=== PATIENT | male | born 1970 | race Hispanic/Latino ===

== ENCOUNTER 2019-05-15 04:07 | Observation (INO) | payer OTHER ==
[2019-05-15] MEDS ORDERED: Nitroglycerin 2% Ointment 1 INCH/1 GM Packet ONE (04:29)
[2019-05-15] MEDS ORDERED: Aspirin Chewable 81 MG TAB ONE (04:29)
[2019-05-15] MEDS ORDERED: Nitroglycerin 0.4 MG TAB 1 EACH ONE (04:29)
[2019-05-15 04:33] LABS: #Basophils 0.1 thou/uL (0.0-0.2); #Eosinphils 0.3 thou/uL (0.0-0.7); #Lymphocytes 2.5 thou/uL (1.20-3.40); #Monocytes 0.9 thou/uL (0.11-0.59); #Neutrophils 3.8 thou/uL (1.40-6.50); %Basophils 0.7 % (0.0-1.0); %Eosinophils 3.9 % (0.0-10.0); %Lymphocytes 33.1 % (21.0-51.0); %Monocytes 11.3 % (0.0-10.0); Hemoglobin 17.8 g/dL (14.0-18.0); Mean Corpuscular HGB CONC 32.1 g/dL (32.0-36.0); Mean Corpuscular Hemoglobin 28.4 pg (27.0-31.0); Mean Corpuscular Volume 88.5 fL (78.0-98.0); Mean Platelet Volume 8.5 fL (7.4-10.4); Platelet Count 170 thou/uL (130-400); RBC Distribution Width 13.6 % (11.5-14.5); Red Blood Cell (RBC) Count 6.26 mill/uL (4.70-6.10); White Blood Cell (WBC) Count 7.5 thou/uL (4.8-10.8)
[2019-05-15 05:00] LABS: ALT (SGPT) 36 U/L (8-55); AST (SGOT) 25 U/L (5-34); Albumin 4.4 g/dL (3.5-5.0); Alkaline Phosphatase 94 U/L (40-150); Anion Gap 12 mmol/L (10-20); BUN (Urea Nitrogen) 14 mg/dL (8.9-20.6); Bilirubin, Total 0.6 mg/dL (0.2-1.2); Calc. Creatinine Clearance 0 mL/min (70-130); Carbon Dioxide 23 mmol/L (22-29); Chloride 105 mmol/L (98-107); Estimated GFR-MDRD 79; Globulin 2.9 g/dL (2.4-3.5); Glucose 89 mg/dL (70-105); Protein, Total 7.3 g/dL (6.0-8.3); Sodium 136 mmol/L (136-145)
[2019-05-15 05:45] LABS: Bilirubin Negative (Negative); Blood, Urine Negative (Negative); Clarity Clear (Clear); Glucose, Urine (Dipstick) Normal (Negative); Leukocyte Negative Leu/uL (Negative); Nitrite Negative (Negative); Protein, Urine (Dipstick) Negative (Neg-Trace); Urobilinogen Normal mg/dL (Less than 2)
[2019-05-15] MEDS ORDERED: Ondansetron PF 4 MG/2 ML Vial IVP PRN ×2 (06:43→07:44)
[2019-05-15] MEDS ORDERED: Ondansetron ODT 4 MG TAB PO PRN ×2 (06:44→07:44)
[2019-05-15] MEDS ORDERED: Acetaminophen 325 MG TAB PO PRN ×2 (06:44→07:44)
[2019-05-15 06:45] VITALS: BMI 27.9
[2019-05-15] MEDS ORDERED: Sodium Chloride 0.9% 1,000 ML IV SCH (06:45)
--- NOTE | 2019-05-15 07:37 | RAD ---
Portable frontal chest radiograph: 05/15/2019 COMPARISON: None HISTORY: Chest pain, hypertension FINDINGS: No pneumothorax or focal consolidation. No alveolar edema. Blunting of the costophrenic ang le noted on the right, which may signify pleural thickening and/or small volume right pleural effusion. Heart and mediastinal contours are grossly unremarkable. IMPRESSION: Blunting of the right costophrenic angle suggests right pleural fluid. This could be bett er assessed with PA and lateral imaging of the chest.
[2019-05-15] MEDS ORDERED: Zolpidem Tartrate 5 MG TAB PO PRN (07:44)
[2019-05-15] MEDS ORDERED: Loratadine 10 MG TAB PO PRN (07:44)
[2019-05-15] MEDS ORDERED: Sodium Chloride 0.65% Nasal 44 ML BOT EA NARE PRN (07:44)
[2019-05-15] MEDS ORDERED: Artificial Tears 18 DROP/0.9 ML EA EYE PRN (07:44)
[2019-05-15] MEDS ORDERED: Loperamide HCl 2 MG CAP PO PRN (07:44)
[2019-05-15] MEDS ORDERED: Cepastat Lozenges 1 LOZ PO PRN (07:44)
[2019-05-15] MEDS ORDERED: Senokot S 8.6-50 MG TAB PO PRN (07:44)
[2019-05-15] MEDS ORDERED: Diabetic Tussin 200 MG/10 ML UDCUP PO PRN (07:44)
[2019-05-15] MEDS ORDERED: hydrALAZINE 20 MG/ML VIAL SLOW IVP PRN (07:44)
[2019-05-15] MEDS ORDERED: Bisacodyl 5 MG TAB PO PRN (07:44)
[2019-05-15] MEDS ORDERED: Calcium Carbonate 500 MG ChewTAB PO PRN (07:44)
[2019-05-15] MEDS ORDERED: Nitroglycerin 0.4 MG TAB (25 Tab Bottle) SL PRN (07:44)
[2019-05-15 07:56] LABS: Troponin I Less than 0.010 ng/mL (< 0.028)
[2019-05-15 08:30] LABS: Cardiac Risk 4.3 (Less than 4.5)
[2019-05-15] MEDS ORDERED: Famotidine 20 MG TAB PO SCH (09:00)
[2019-05-15 10:50] LABS: Troponin I Less than 0.010 ng/mL (< 0.028)
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
[2019-05-15] MEDS ORDERED: SUMAtriptan Succinate 50 MG TAB PO SCH (13:30)
[2019-05-15] MEDS ORDERED: cloNIDine 0.1 MG TAB PO PRN (14:58)
[2019-05-15] MEDS ORDERED: Famotidine/PF 20 mg/2ml Vial SLOW IVP SCH (15:00)
[2019-05-15] MEDS ORDERED: Enoxaparin Sodium 80 MG/0.8 ML SYRINGE SC SCH (15:00)
--- NOTE | 2019-05-15 16:43 | CON ---
DATE OF CONSULTATION: 05/15/2019 REASON FOR CONSULTATION: Chest pain and pressure at rest. HISTORY OF PRESENT ILLNESS: Mr. Edwards is a 49-year-old gentleman. The patient recently has undergone evaluation including stress testing, found to have abnormalities on stress test and was scheduled for cardiac catheterization. He has been visiting this area and had recurrent chest pain. The patient states that his pain has been going on about a year, almost exclusively at night, severe pain. He said the pain he had last night was one of the worst he has had and is very intense and woke him up from sleep. He had resolution of pain here. The patient's pain is described as a severe intense pressure in middle of his chest, going across his chest. The patient recently underwent stress testing, it was thought to have a fixed inferior defect with joe-infarction ischemia. Ejection fraction 45% to 50%. Also, recent testing indicated severely increased LDL cholesterol at 151 and from reading the notes that was on atorvastatin. HOME MEDICATIONS: Included, 1. Aspirin. He is taking on occasion, but not consistently. 2. Atorvastatin 40 mg a day. 3. Lisinopril 10 mg a day. 4. Metoprolol 75 mg a day succinate. 5. Naproxen. He has migraine headaches. He was taking rizatriptan benzoate as well as Imitrex if needed. Stress test was done. The patient was an actually able to exercise for 15 minutes on the René protocol, did not have chest pain. Heart rate has reached 150. There is no significant ST or T-wave changes. However, the nuclear medicine imaging revealed a fixed inferior defect with possible joe-infarction ischemia. The ejection fraction however on echocardiogram was 60% to 64%. Of note, the patient did apparently have some evaluation with upper endoscopy. He thinks about 3 years ago from his description, it sounds like they found reflux. He has not been having any burning in his chest or reflux like symptoms recently. Stress test was done on 04/16/2019. ALLERGIES: NONE KNOWN. SOCIAL HISTORY: No alcohol or tobacco. FAMILY HISTORY: Negative for heart disease at a young age. REVIEW OF SYSTEMS: CONSTITUTIONAL: No significant weight gain or loss. VISION: No changes. HEARING: No changes. PULMONARY: No cough or wheezing. GASTROINTESTINAL: No nausea, vomiting, or diarrhea. SKIN: No rashes. NEUROLOGIC: No unilateral weakness or numbness. PSYCHIATRIC: No unusual depression or anxiety. PHYSICAL EXAMINATION: GENERAL: This is a pleasant 49-year-old gentleman. He is 5 feet and 6 inches tall and 173 pounds. HEENT: Eyes, sclerae are nonicteric. Mouth, mucous membranes are moist. NECK: Supple. No lymphadenopathy. LUNGS: Clear. No wheezing, rales, or rhonchi. CARDIAC: Normal S1 and normal S2. There is no murmur, rub, or gallop. ABDOMEN: Soft and nontender. EXTREMITIES: Warm and dry. No clubbing, cyanosis, or edema. PERIPHERAL PULSES: Strong posterior tibial and dorsalis pedis pulses. SKIN: Warm and dry. IMAGING STUDIES: EKG, normal sinus rhythm. There is left axis deviation. There are T-wave inversions in the inferior leads, although the axis is shifted and the T-waves are in the same direction as the majority of the complex. Cardiac enzymes were negative. ASSESSMENT: 1. Chest pain and pressure at rest, probably angina. 2. Abnormal stress test. 3. Hypercholesterolemia. 4. History of hypertension, currently pain-free with negative cardiac enzymes. PLAN: Proceed to cardiac catheterization tomorrow. Discussed risk of stroke, heart attack, iodine allergy, loss of blood supply to leg or kidney, discussed stenting and risk of vessel perforation, stent thrombosis, stent restenosis, and need for bypass surgery. The patient understands and wished to proceed. We will arrange for this tomorrow morning. Job ID: [id number]
[2019-05-15] MEDS ORDERED: Amitriptyline HCl 10 MG TAB PO SCH (21:00)
[2019-05-15] MEDS ORDERED: Atorvastatin Calcium 40 MG TAB PO SCH ×3 (21:00)
[2019-05-16] MEDS ORDERED: Sodium Chloride 0.9% 1,000 ML IV SCH (06:00)
[2019-05-16] MEDS ORDERED: Diazepam 5 MG TAB PO SCH (06:00)
[2019-05-16] MEDS ORDERED: Communication Order-Pharmacy FS SCH (06:00)
[2019-05-16] MEDS ORDERED: Lidocaine 1% (PF) 30 ML VIAL ONE (06:32)
[2019-05-16] MEDS ORDERED: Midazolam HCl 2 mg/2 ml Vial ONE (07:10)
[2019-05-16] MEDS ORDERED: Fentanyl 100 MCG/2 ML VIAL ONE (07:11)
[2019-05-16] MEDS ORDERED: Nitroglycerin 100MG/250ML BOT 250 ML ONE (07:33)
[2019-05-16] MEDS ORDERED: Acetaminophen/Codeine 30-300mg Tablet PO PRN (08:03)
[2019-05-16] MEDS ORDERED: Sodium Chloride 0.9% 200 ML IV PRN (08:03)
[2019-05-16] MEDS ORDERED: Nitroglycerin 0.4 MG TAB (25 Tab Bottle) SL PRN (08:03)
[2019-05-16] MEDS ORDERED: Aspirin 325 mg Enteric Coated Tablet PO SCH (09:00)
[2019-05-16] MEDS ORDERED: Famotidine/PF 20 mg/2ml Vial SLOW IVP SCH (09:00)
[2019-05-16 12:06] VITALS: TEMP 97.8
[2019-05-16] MEDS ORDERED: Iopamidol 370 76% 100 ML VIAL ONE (12:35)
--- NOTE | 2019-05-16 12:39 | DIS ---
DATE OF ADMISSION: 05/15/2019 DATE OF DISCHARGE: 05/16/2019 PRIMARY CARE PHYSICIAN: [facility] Call admission. DISCHARGE DISPOSITION: Home. PRIMARY DISCHARGE DIAGNOSES: 1. Chest pain, ruled out acute coronary syndrome. 2. Abnormal stress test. 3. Status post cardiac cath, found with cardiomyopathy. SECONDARY DISCHARGE DIAGNOSES: Migraine headache, hypertension, dyslipidemia. PRIMARY PROCEDURE/OPERATION: Cardiac catheterization performed by Dr. Oreilly and found with inferior hypokinesis, mild global hypokinesis. EF 40%. Normal coronaries. Chest x-ray normal. SIGNIFICANT LABORATORY DATA: CBC, BMP, LFT, cardiac enzyme, BNP, lipid profile normal. DISCHARGE MEDICATIONS: 1. Imitrex 200 mg q.2 hourly p.r.n. for migraine headache as directed. 2. Arimidex 1 mg p.o. every 3 days. 3. Elavil 10 mg p.o. at bedtime. 4. Lipitor 40 mg p.o. at bedtime. 5. Toprol-XL 75 mg p.o. daily. 6. Minocycline 50 mg p.r.n. as directed. 7. Naproxen 500 mg p.o. b.i.d. p.r.n. as directed. 8. Omeprazole 40 mg p.o. daily. 9. Aspirin 325 mg p.o. daily. 10. Lisinopril 5 mg p.o. daily. CONTRAINDICATION: None. CODE STATUS: Full code. INPATIENT TELEPHONE MAINTENANCE MECHANIC: Dr. Oreilly. TEST RESULTS PENDING ON DISCHARGE: None. ALLERGIES: NO KNOWN DRUG ALLERGIES. DISCHARGE PLAN: Posthospital, the patient will make appointment with primary care physician in 1 or 2 weeks. HOSPITAL COURSE: A 49-year-old male with above-mentioned medical problem, who was admitted by me. Please see my H and P for further details. This patient was having chest pain and that is why we admitted him to the hospital. His description of chest pain was atypical. He already had outpatient basis cardiac stress test which was abnormal and that is why we consulted Cardiology and Cardiology did cardiac cath today. He was found with mild cardiomyopathy and normal coronaries and Cardiology recommended medical therapy. Overall, the patient is doing very well. He does not have any further chest pain. His telemetry remained unremarkable. All blood tests while in hospital were normal. We are discharging him home. I have seen and examined the patient at bedside today. His examination was completely normal. Job ID: [id number]
[2019-05-16] MEDS ORDERED: Lisinopril 10 MG TAB PO SCH (14:00)
[2019-05-16 15:17] VITALS: BP 134/84
[2019-05-16] MEDS ORDERED: Atorvastatin Calcium 40 MG TAB PO SCH (21:00)
[2019-05-17] MEDS ORDERED: Lisinopril 5 MG TAB PO SCH ×2 (09:00)
--- NOTE | 2019-05-17 14:08 | EKG ---
Test Reason : Blood Pressure : / mmHG Vent. Rate : 063 BPM Atrial Rate : 063 BPM P-R Int : 150 ms QRS Dur : 096 ms QT Int : 386 ms P-R-T Axes : 014 -27 -34 degrees QTc Int : 395 ms Normal sinus rhythm Voltage criteria for left ventricular hypertrophy Abnormal ECG Confirmed by SHANI HUNT ([id number]), clinical editor AMA CHRISTIANSEN ([id number] on 05/17/2019 2:07:44 PM Referred By: Confirmed By:SHANI HUNT
== END 2019-05-16 15:45 | disposition home or self-care (01) ==
LOC: ERS 04:07 → 2SW 05:32
PROVIDERS: ADMIT Family Medicine; ATTEND Family Medicine
PROC: 4A023N7 Measurement of Cardiac Sampling and Pressure, Left Heart, Percutaneous Approach (ICD-10-PCS; principal; 2019-05-16)
PROC: B2111ZZ Fluoroscopy of Multiple Coronary Arteries using Low Osmolar Contrast (ICD-10-PCS; 2019-05-16)
DX: R07.89 Other chest pain (principal); R94.39 Abnormal result of other cardiovascular function study; I42.9 Cardiomyopathy, unspecified; G43.909 Migraine, unspecified, not intractable, without status migrainosus; I10 Essential (primary) hypertension; E78.5 Hyperlipidemia, unspecified; K21.9 Gastro-esophageal reflux disease without esophagitis; F41.9 Anxiety disorder, unspecified; F32.9 Major depressive disorder, single episode, unspecified; Z79.899 Other long term (current) drug therapy
CPT/HCPCS: 36415; 71045; 76942; 80053; 80061; 81003; 83880; 84484; 85025; 93005; 93458; 93798; 96360; 96361; 99152; 99153; C1769; G0378; J1644; J1650; J2001; J2250; J3010; Q9967; S0028